=== PATIENT | male | born 1985 | race Caucasian/White ===

== ENCOUNTER → 2017-01-13 | Day surgery (SDC) | payer BC ==
[~2017-01-13] VITALS: Ht 190.5 cm; Wt 91.0 kg
[~2017-01-13] MED LIST: BUPIVACAINE HCL PF 0.5% 30 ML VIAL ONE; CETI-1 PO; CHLORHEXIDINE GLUCONATE 2 % 1 PACK (2 CLOTHS) TOPICAL PRN; CIPR-9 PO; CIPROFLOXACIN/DEXT 400 MG/200 ML IV SCH; INSULIN HUMAN REGULAR 1,000 UNITS/10 ML VIAL SQ PRN; LACTATED RINGER'S 1000 ML IV PRN; LIDOCAINE HCL 2% 50 ML VIAL ONE; METOPROLOL TARTRATE 25 MG TAB PO PRN; MIDAZOLAM HCL 2 MG/2 ML VIAL ONE; NEOMYCIN/POLYMYXIN 1 ML G.U. IRRIGANT ONE; NORC5TAB PO; ONDANSETRON HCL 4 MG/2 ML VIAL IV PUSH ONE; POVIDONE IODINE 5% (ANTISEPSIS KIT) 4 APPLICATIONS EACH NARE PRN; PROPOFOL 200 MG/20 ML AMP IV ONE; SODIUM CHLORID 0.9% 500 ML IV PRN
[2017-01-13 06:36] VITALS: BP 110/74; PULSE 54; RESP 16; TEMP 97.4; O2SAT 98
[2017-01-13 07:25] LABS: HEMATOCRIT 45.9 % (39.0-51.0); MEAN CELL VOLUME 89.2 FL (80.0-100.0); MEAN CORPUSCULAR HEMOGLOBIN 29.3 PG (27.0-34.0); MEAN CORPUSCULAR HGB CONC 32.9 % (32.0-36.0); PLATELET COUNT 175 TH/MM3 (150-450); RED BLOOD COUNT 5.14 MIL/MM3 (4.50-5.90); RED CELL DISTRIBUTION WIDTH 13.9 % (11.6-17.2); REVIEW FLAG FINAL; WHITE BLOOD COUNT 4.4 TH/MM3 (4.0-11.0)
[2017-01-13 10:10] VITALS: BP 106/64; PULSE 56; RESP 16; TEMP 98; O2SAT 99
--- NOTE | 2017-01-15 10:38 | MP ---
cc: JERMAINE PIRES III, M.D. DATE OF SURGERY: 01/13/2017 PREOPERATIVE DIAGNOSIS Right middle finger mass. PROCEDURE Right middle finger mass excisional biopsy. SURGEON Jermaine Pires III, MD PROCEDURE The patient was brought to the operating room and placed supine on the operating table. After the correct side and site of surgery was verified by members of each team in the room multiple times including the patient, myself and after adequate preop markings, preoperative written consent were verified by everyone, after adequate preop time-out was performed to everyone's satisfaction, after adequate IV sedation had been achieved, right upper extremity was prepped and draped in traditional sterile surgical fashion. Digital block on the radial side of the finger was done using 50/50 mixture of 2% plain lidocaine, 0.5% plain Marcaine. The limb was elevated and pressure was held on the brachial artery for 1 minute and a highly placed well-padded axillary tourniquet was inflated to 200 mmHg for a total of 12 minutes. A curvilinear incision on the dorsal aspect of the middle finger over the largest area of the mass was made and carried down through skin and subcutaneous tissue. Blunt dissection was performed. Bipolar electrocautery was used as needed. The mass was found to be filled with a milky white fluid, this was cultured. It was dissected free from surrounding tissues. Bipolar electrocautery was used as needed. The extensor tendon and the neurovascular bundles were not involved. The mass was excised and passed off the field in its entirety as specimen. There were no other anatomic abnormalities. Thorough irrigation with saline was performed. Some skin edges that were redundant and excessive were trimmed and the skin edges reapproximated using interrupted 4-0 Nylon sutures. The axillary tourniquet was released prior to the closure and the hand and all the fingers including the middle finger became immediately soft, pink, warm and had brisk capillary refill of less than 2-seconds. There was no active bleeding. Hemostasis was present. The hand and arm was thoroughly cleansed and dried. Betadine and Adaptic dressing was applied on top of the wound followed by a bulky soft dressing. The patient was awakened from anesthesia and transported to Post Anesthesia Care Unit awake and in stable condition at the end of the case. Sponge, needle, instrument counts were correct at the end of the case as reported by nurses in the room. Jermaine MD MATIAS Smith III /9:00 AM /10:22 AM
== END | disposition home or self-care (01) ==
LOC: PHSDC 06:13
PROVIDERS: ATTEND Orthopaedic Surgery Hand Surgery
DX: L72.0 Epidermal cyst (principal); Z01.818 Encounter for other preprocedural examination
CPT/HCPCS: 00400; 26115; 36415; 85027; 87070; 87205; 88304; J0744; J2250; J2405; J3010; J7120; 88305